=== PATIENT | female | born 1990 | race Hispanic/Latino ===

== ENCOUNTER 2022-07-15 14:48 | Emergency (ER) | payer SELFPAY ==
--- NOTE | 2022-07-15 15:44 | RAD REPORT ---
EXAM DESCRIPTION: RAD - Chest Single View - 07/15/2022 3:37 pm CLINICAL HISTORY: CHEST PAIN Chest pain. COMPARISON: No comparisons FINDINGS: Portable technique limits examination quality. The lungs are grossly clear. The heart is normal in size. No displaced fractures. IMPRESSION: No acute intrathoracic process suspected.
[2022-07-15 16:10] LABS: Absolute Lymphocytes (CBC) 1.7 K/uL (0.7-4.9); Hematocrit 44.5 % (36.0-45.0); Lymphocytes % 23.8 % (15.3-44.8); MCV 85.6 fL (80-100)
[2022-07-15 16:30] LABS: Potassium 3.5 mmol/L (3.5-5.1); Troponin High Sensitivity 4.7 pg/mL (<58.9)
--- NOTE | 2022-07-15 17:35 | ER ---
Nurse's Notes [facility] Name: Fariba Santos Age: 31 yrs Sex: Female : 1990 Arrival Date: 07/15/2022 Time: 14:50 Bed IW1 Private MD: Diagnosis: Chest pain, unspecified Presentation: 07/15 14:56 Chief complaint: Patient states: Mid chest pressure since yesterday. Coronavirus ll1 screen: Vaccine status: Patient reports receiving the 2nd dose of the covid vaccine. Client denies travel out of the [place] in the last 14 days. At this time, the client does not indicate any symptoms associated with coronavirus-19. Ebola Screen: Patient denies travel to an Ebola-affected area in the 21 days before illness onset. Initial Sepsis Screen: Does the patient meet any 2 criteria? No. Patient's initial sepsis screen is negative. Does the patient have a suspected source of infection? No. Patient's initial sepsis screen is negative. Risk Assessment: Do you want to hurt yourself or someone else? Patient reports no desire to harm self or others. Onset of symptoms was July 14, 2022. 14:56 Method Of Arrival: Ambulatory ll1 14:56 Acuity: SAADIA 3 ll1 Triage Assessment: 15:00 General: Appears in no apparent distress. Behavior is calm, cooperative, appropriate ll1 for age. Pain: Complains of pain in chest Quality of pain is described as aching. Cardiovascular: Reports chest pain. 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 - Social history:: Smoking status: Patient denies any tobacco usage or history of. Screenin:02 Abuse screen: Denies threats or abuse. Nutritional screening: No deficits noted. ll1 Tuberculosis screening: No symptoms or risk factors identified. Fall Risk IV access (20 points). Total Fournier Fall Scale indicates No Risk (0-24 pts). Assessment: 18:01 Reassessment: No changes from previously documented assessment. Patient and/or family ll1 updated on plan of care and expected duration. Pain level reassessed. Patient is alert, oriented x 3, equal unlabored respirations, skin warm/dry/pink. 18:03 Pain: Pain does not radiate. Pain began 1 day ago. ll1 Vital Signs: 14:56 BP 140 / 87; Pulse 60; Resp 17; Temp 97.0; Pulse Ox 99% ; Weight 86.18 kg; Height 5 ft. ll1 0 in. (152.40 cm); Pain 6/10; 18:03 BP 141 / 75; Pulse 53; Resp 16; Pulse Ox 99% ; ll1 14:56 Body Mass Index 37.11 (86.18 kg, 152.40 cm) ll1 ED Course: 14:50 Patient arrived in ED. as 14:55 Chato Stephens PA is PHCP. cp 14:55 Chato Arauz MD is Attending Physician. cp 14:57 PHCP role handed off by Chato Stephens PA kb 14:57 Margie Ford FNP-C is PHCP. kb 14:58 Triage completed. ll1 14:58 Arm band placed on. ll1 15:39 XRAY Chest (1 view) In Process Unspecified. EDMS 18:01 No provider procedures requiring assistance completed. IV discontinued, intact, ll1 bleeding controlled, No redness/swelling at site. Pressure dressing applied. Patient maintains SpO2 saturation greater than 95% on room air. 18:02 Patient has correct armband on for positive identification. Cardiac monitoring not ll1 applicable on this patient. Administered Medications: No medications were administered Medication: 18:03 VIS not applicable for this client. ll1 Outcome: 17:34 Discharge ordered by . kb 18:02 Discharged to home ambulatory. ll1 18:02 Condition: stable 18:02 Discharge instructions given to patient, Instructed on discharge instructions, follow up and referral plans. Demonstrated understanding of instructions, follow-up care. 18:03 Patient left the ED. ll1 Signatures: Dispatcher [employer] EDME Margie Ford FNP-C FNP-Ckb Martinez, Amelia as Chato Stephens PA PA cp Lewis, Lynsay, RN RN ll1
--- NOTE | 2022-07-15 17:35 | EDPHYS ---
Physician Documentation [facility] Name: Fariba Santos Age: 31 yrs Sex: Female : 1990 Arrival Date: 07/15/2022 Time: 14:50 Bed IW1 Private MD: ED Physician Chato Arauz HPI: 07/15 18:12 This 31 yrs old Female presents to ER via Ambulatory with complaints of Chest kb Pain. 18:12 The patient or guardian reports chest pain that is located primarily in the anterior kb chest wall. The pain does not radiate. Associated signs and symptoms: Pertinent positives: nausea, Pertinent negatives: shortness of breath. The chest pain is described as a pressure. Duration: The patient or guardian reports a single episode, that is still ongoing. Modifying factors: The symptoms are alleviated by nothing. the symptoms are aggravated by nothing. Severity of pain: At its worst the pain was mild in the emergency department the pain is unchanged. The patient has not experienced similar symptoms in the past. The patient has not recently seen a physician. Pt reports chest pressure since yesterday. Denies any medical history. 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 - Social history:: Smoking status: Patient denies any tobacco usage or history of. ROS: 18:11 Constitutional: Negative for fever, chills, and weight loss. kb 18:11 Cardiovascular: Positive for chest pain, Negative for edema, orthopnea, palpitations, paroxysmal nocturnal dyspnea. 18:11 All other systems are negative. Exam: 15:03 Constitutional: This is a well developed, well nourished patient who is awake, alert, kb and in no acute distress. Head/Face: Normocephalic, atraumatic. ENT: Moist Mucous membranes Cardiovascular: Regular rate and rhythm with a normal S1 and S2. No gallops, murmurs, or rubs. No pulse deficits. Respiratory: Respirations even and unlabored. No increased work of breathing. Talking in full sentences Abdomen/GI: Soft, non-tender. No distention Skin: Warm, dry with normal turgor. Normal color. MS/ Extremity: Pulses equal, no cyanosis. Neurovascular intact. Full, normal range of motion. Neuro: Awake and alert, GCS 15, oriented to person, place, time, and situation. Moves all extremities. Normal gait. Psych: Awake, alert, with orientation to person, place and time. Behavior, mood, and affect are within normal limits. 15:03 ECG was reviewed by the Attending Physician. Vital Signs: 14:56 BP 140 / 87; Pulse 60; Resp 17; Temp 97.0; Pulse Ox 99% ; Weight 86.18 kg; Height 5 ft. ll1 0 in. (152.40 cm); Pain 6/10; 18:03 BP 141 / 75; Pulse 53; Resp 16; Pulse Ox 99% ; ll1 14:56 Body Mass Index 37.11 (86.18 kg, 152.40 cm) ll1 MDM: 14:57 Patient medically screened. kb 18:10 Data reviewed: vital signs, nurses notes. Data interpreted: Pulse oximetry: on room air kb is 99 %. Interpretation: normal. Counseling: I had a detailed discussion with the patient and/or guardian regarding: the historical points, exam findings, and any diagnostic results supporting the discharge/admit diagnosis, lab results, radiology results, the need for outpatient follow up, a family practitioner, to return to the emergency department if symptoms worsen or persist or if there are any questions or concerns that arise at home. 07/15 14:58 Order name: Basic Metabolic Panel; Complete Time: 16:40 kb 07/15 14:58 Order name: CBC with Diff; Complete Time: 16:14 kb 07/15 14:58 Order name: Troponin HS; Complete Time: 16:40 kb 07/15 14:58 Order name: XRAY Chest (1 view); Complete Time: 15:47 kb 07/15 14:58 Order name: EKG; Complete Time: 14:58 kb 07/15 14:58 Order name: Cardiac monitoring; Complete Time: 15:02 kb 07/15 14:58 Order name: EKG - Nurse/Tech; Complete Time: 15:02 kb 07/15 14:58 Order name: IV Saline Lock; Complete Time: 16:00 kb 07/15 14:58 Order name: Labs collected and sent; Complete Time: 16:00 kb 07/15 14:58 Order name: O2 Per Protocol; Complete Time: 16:00 kb 07/15 14:58 Order name: O2 Sat Monitoring; Complete Time: 16:00 kb EC:03 Rate is 56 beats/min. Rhythm is regular. QRS [place] is Normal. ND interval is normal at kb 166 msec. QRS interval is normal at 84 msec. QT interval is normal at 409 msec. Administered Medications: No medications were administered Disposition: 07/16 09:27 Co-signature as Attending Physician, Chato Arauz MD I agree with the assessment and rufus plan of care. Disposition Summary: 07/15/22 17:34 Discharge Ordered Location: Home kb Condition: Stable kb Diagnosis - Chest pain, unspecified kb Followup: kb - With: Emergency Department - When: As needed - Reason: Worsening of condition Followup: kb - With: Private Physician - When: 2 - 3 days - Reason: Recheck today's complaints, Continuance of care, Re-evaluation by your physician Discharge Instructions: - Discharge Summary Sheet kb - Nonspecific Chest Pain, Adult, Nmmi-hs-Cori kb Forms: - Medication Reconciliation Form kb - Thank You Letter kb - Antibiotic Education kb - Prescription Opioid Use kb Signatures: Dispatcher [employer] Margie Hendrickson, CLIP LOADING MACHINE ADJUSTER-C CLIP LOADING MACHINE ADJUSTER-Chato Reddy MD MD cha Lewis, Lynsay, RN RN ll1
[2022-07-15 18:24] VITALS: TEMP 97; O2SAT 99
[2022-07-15 18:26] VITALS: BP 141/75
--- NOTE | 2022-07-18 19:21 | EKG ---
Test Date: 2022-07-15 Test Time: 15:02:50 Hair Blender: ANNA MARIE MEASUREMENT RESULTS: Intervals: Rate: 56 WA: 166 QRSD: 84 QT: 424 QTc: 409 [place]: P: 57 WA: 166 QRS: 29 T: 15 INTERPRETIVE STATEMENTS: Sinus bradycardia Otherwise normal ECG No previous ECG available for comparison Electronically Signed On 07-18-22 19:11:21 PHOTO FINISHER by Cholo Krishnamurthy
== END 2022-07-15 18:03 | disposition home or self-care (01) ==
LOC: ER 14:48
DX: R07.89 Other chest pain (principal)
CPT/HCPCS: 36415; 71045; 80048; 84484; 85025; 93005; 99284